=== PATIENT | male | born 1970 | race Caucasian/White ===

== ENCOUNTER 2018-10-21 13:45 | Emergency (ER) | payer MEDICAID, OTHER ==
[~2018-10-21] VITALS: Ht 172.7 cm; Wt 76.0 kg
[~2018-10-21 13:45] MED LIST: CEPH-572 PO; SULF1TAB49 PO; TRAM50TA2 PO
[2018-10-21 14:17] VITALS: BP 140/89
[2018-10-21] MEDS ORDERED: CefTRIAXone 1000mg IM Kit (w/lidocaine diluent) IM ONE (15:05)
== END 2018-10-21 15:20 | disposition home or self-care (01) ==
LOC: ER 13:45
DX: L02.415 Cutaneous abscess of right lower limb (principal); Z79.2 Long term (current) use of antibiotics; Z79.899 Other long term (current) drug therapy
CPT/HCPCS: 96372; 99283; J0696

== ENCOUNTER 2019-05-27 14:02 | Emergency (ER) | payer MEDICAID ==
[~2019-05-27] VITALS: Ht 172.7 cm; Wt 82.0 kg
[~2019-05-27 14:02] MED LIST changes: -CEPH-572 PO; -SULF1TAB49 PO
[2019-05-27 14:08] VITALS: BP 122/84
[2019-05-27] MEDS ORDERED: AMOX-580 PO (14:48)
== END 2019-05-27 15:06 | disposition home or self-care (01) ==
LOC: ER 14:03
DX: K04.7 Periapical abscess without sinus (principal)
CPT/HCPCS: 99283

== ENCOUNTER 2020-10-29 18:56 | Emergency (ER) | payer MEDICAID ==
[~2020-10-29] VITALS: Ht 172.7 cm; Wt 95.0 kg
[2020-10-29 19:14] VITALS: BP 154/97
[2020-10-29] MEDS ORDERED: ketorolac tromethamine 15mg/ml inj. IM ONE (23:30)
[2020-10-29 23:52] LABS: BASOPHILS % (AUTO) 0.4 % (0-1); EOSINOPHILS # (AUTO) 0.1 X10'3 (0-0.9); EOSINOPHILS % (AUTO) 1.4 % (0-6); HEMATOCRIT 41.6 % (42.0-52.0); HEMOGLOBIN 14.2 g/dl (14.0-17.9); LYMPHOCYTES # (AUTO) 2.4 X10'3 (1.1-4.8); LYMPHOCYTES % (AUTO) 24.4 % (21-51); MEAN CORPUSCULAR HEMOGLOBIN 30.1 PG (27.0-31.0); MEAN CORPUSCULAR HGB CONC 34.2 g/dL (33.0-36.5); MEAN CORPUSCULAR VOLUME 87.9 FL (78-98); MEAN PLATELET VOLUME 8.1 FL (7.4-10.4); MONOCYTES # (AUTO) 0.6 X10'3 (0-0.9); MONOCYTES % (AUTO) 5.8 % (2-12); NEUTROPHILS # (AUTO) 6.7 X10'3 (1.8-7.7); PLATELET COUNT 251 X10'3 (140-440); RED BLOOD COUNT 4.73 X10'6 (4.70-6.10); RED CELL DISTRIBUTION WIDTH 13.5 % (11.5-14.5); WHITE BLOOD COUNT 9.9 X10'3 (4.5-11.0)
[2020-10-30 00:02] LABS: ALANINE AMINOTRANSFERASE 35 U/L (12-78); ALBUMIN 3.7 G/DL (3.4-5.0); ALKALINE PHOSPHATASE 88 IU/L (46-116); ANION GAP 10 (8-16); ASPARTATE AMINO TRANSFERASE 16 U/L (10-37); BILIRUBIN,TOTAL 0.3 MG/DL (0.1-1.0); BLOOD UREA NITROGEN 17 MG/DL (7-18); BUN/CREATININE RATIO 18.7 (5.4-32.0); CALCIUM 8.6 MG/DL (8.5-10.1); CHLORIDE 104 MMOL/L (99-107); CREATININE 0.91 MG/DL (0.60-1.10); GLUCOSE 107 MG/DL (70-104); POTASSIUM 3.6 MMOL/L (3.5-5.1); SODIUM 140 MMOL/L (135-145); TOTAL CARBON DIOXIDE 25.9 MMOL/L (24-32); TOTAL PROTEIN 7.4 G/DL (6.4-8.2); eGFR 89 ML/MIN
[2020-10-30] MEDS ORDERED: clindamycin 150mg capsule PO ONE (00:15)
[2020-10-30] MEDS ORDERED: CLIN300C70 PO (00:23)
[2020-10-30] MEDS ORDERED: IBUP-1984 PO (00:23)
== END 2020-10-30 00:49 | disposition home or self-care (01) ==
LOC: ER 18:57
DX: K04.7 Periapical abscess without sinus (principal); M25.50 Pain in unspecified joint; Z79.2 Long term (current) use of antibiotics; Z79.899 Other long term (current) drug therapy
CPT/HCPCS: 36415; 80053; 85025; 96372; 99283; J1885

== ENCOUNTER 2021-09-14 13:42 | Emergency (ER) | payer MEDICAID ==
[~2021-09-14] VITALS: Ht 172.7 cm; Wt 88.0 kg
[2021-09-14 13:51] VITALS: BP 128/90
[2021-09-14] MEDS ORDERED: PENI250T2 PO ×2 (14:22→14:33)
[2021-09-14] MEDS ORDERED: NAPR-56 PO ×2 (14:22→14:33)
== END 2021-09-14 14:38 | disposition home or self-care (01) ==
LOC: ER 13:43
DX: K08.89 Other specified disorders of teeth and supporting structures (principal); Z79.899 Other long term (current) drug therapy
CPT/HCPCS: 99283

== ENCOUNTER 2024-01-20 16:07 | Emergency (ER) | payer MEDICAID ==
[~2024-01-20] VITALS: Ht 172.7 cm; Wt 81.8 kg
[~2024-01-20 16:07] MED LIST changes: +NAPR-56 PO; +PENI250T2 PO
[2024-01-20 16:21] VITALS: TEMP 97.8
[2024-01-20 17:49] LABS: BASOPHILS % (AUTO) 0.3 % (0-1); EOSINOPHILS # (AUTO) 0.1 X10'3 (0-0.9); EOSINOPHILS % (AUTO) 0.5 % (0-6); HEMATOCRIT 48.7 % (42.0-52.0); HEMOGLOBIN 16.8 g/dl (14.0-17.9); LYMPHOCYTES # (AUTO) 3.1 X10'3 (1.1-4.8); LYMPHOCYTES % (AUTO) 20.3 % (21-51); MEAN CORPUSCULAR HEMOGLOBIN 30.6 PG (27.0-31.0); MEAN CORPUSCULAR HGB CONC 34.6 g/dL (33.0-36.5); MEAN CORPUSCULAR VOLUME 88.6 FL (78-98); MEAN PLATELET VOLUME 9.2 FL (7.4-10.4); MONOCYTES % (AUTO) 6.5 % (2-12); NEUTROPHILS # (AUTO) 11.2 X10'3 (1.8-7.7); NEUTROPHILS % (AUTO) 72.4 % (42-75); PLATELET COUNT 260 X10'3 (140-440); RED CELL DISTRIBUTION WIDTH 14.9 % (11.5-14.5); WHITE BLOOD COUNT 15.5 X10'3 (4.5-11.0)
[2024-01-20] MEDS: metoprolol tartrate 50mg tablet PO ONE (17:50)
[2024-01-20 18:03] LABS: ALBUMIN 4.4 G/DL (3.4-5.0); ANION GAP 8 (8-16); BLOOD UREA NITROGEN 13 MG/DL (7-18); BUN/CREATININE RATIO 11.7 (10.0-20.0); CALCIUM 8.9 MG/DL (8.5-10.1); CHLORIDE 103 MMOL/L (99-107); CREATININE 1.11 MG/DL (0.60-1.10); GLUCOSE 105 MG/DL (70-104); SODIUM 141 MMOL/L (135-145); THYROID STIMULATING HORMONE 2.34 ulU/ml (0.34-4.50); TOTAL CARBON DIOXIDE 29.9 MMOL/L (24-32); eCRCL 76 ML/MIN; eGFR 70 ML/MIN
[2024-01-20] MEDS ORDERED: LOP12.5T PO (18:06)
[2024-01-20 18:09] LABS: POTASSIUM 3.7 MMOL/L (3.5-5.1)
[2024-01-20 18:30] LABS: APTT 27 SECONDS (22-32); PROTHROMBIN TIME 10.9 SECONDS (9.0-12.0)
[2024-01-20] MEDS: metoprolol tartrate 25mg tablet PO ONE (18:57)
[2024-01-20 20:06] VITALS: BP 124/89; PULSE 94; RESP 18; O2SAT 98
[2024-01-20 20:09] LABS: BILIRUBIN,URINE NEGATIVE (Neg); CLARITY,URINE CLEAR (Clear); COLOR,URINE YELLOW (Yellow); GLUCOSE, URINE NEGATIVE (Neg); KETONES,URINE NEGATIVE (Neg); LEUKOCYTE ESTERASE ,URINE NEGATIVE (Neg); NITRITES, URINE NEGATIVE (Neg); OCCULT BLOOD,URINE NEGATIVE (Neg); PROTEIN,URINE NEGATIVE (Neg); UROBILINOGEN,URINE 0.2 E.U/dL (0.2-1.0)
[2024-01-20 20:12] LABS: UA COLLECTION TYPE CLN CATCH MIDSTREAM
== END 2024-01-20 20:43 | disposition home or self-care (01) ==
LOC: ER 16:07
DX: R03.0 Elevated blood-pressure reading, without diagnosis of hypertension (principal); R00.2 Palpitations; R00.0 Tachycardia, unspecified; D72.829 Elevated white blood cell count, unspecified; Z98.890 Other specified postprocedural states; Z79.1 Long term (current) use of non-steroidal anti-inflammatories (NSAID); Z79.899 Other long term (current) drug therapy
CPT/HCPCS: 36415; 71045; 80048; 81003; 83735; 84443; 85025; 85610; 85730; 93005; 99285

== ENCOUNTER 2024-04-21 09:01 | Emergency (ER) | payer MEDICAID ==
[~2024-04-21] VITALS: Ht 172.7 cm; Wt 86.2 kg
[~2024-04-21 09:01] MED LIST changes: +LOP12.5T PO
[2024-04-21 09:10] VITALS: BP 153/95; PULSE 68; RESP 16; TEMP 98.1; O2SAT 98
== END 2024-04-21 12:05 | disposition home or self-care (01) ==
LOC: ER 09:01
DX: T81.31XA Disruption of external operation (surgical) wound, not elsewhere classified, initial encounter (principal); Z98.890 Other specified postprocedural states; Y83.8 Other surgical procedures as the cause of abnormal reaction of the patient, or of later complication, without mention of misadventure at the time of the procedure
CPT/HCPCS: 99281; 99282

== ENCOUNTER 2024-05-31 12:21 | Emergency (ER) | payer MEDICAID ==
[~2024-05-31] VITALS: Ht 172.7 cm; Wt 93.2 kg
[2024-05-31 12:30] VITALS: TEMP 97.8
[2024-05-31] MEDS ORDERED: AMOX-580 PO (13:44)
[2024-05-31 13:57] VITALS: BP 146/68; PULSE 76; RESP 18; O2SAT 98
== END 2024-05-31 14:00 | disposition home or self-care (01) ==
LOC: ER 12:22
DX: K04.7 Periapical abscess without sinus (principal); K02.9 Dental caries, unspecified; Z79.899 Other long term (current) drug therapy; Z98.890 Other specified postprocedural states
CPT/HCPCS: 99283

== ENCOUNTER 2024-06-11 22:07 | Emergency (ER) | payer MEDICAID ==
[~2024-06-11] VITALS: Ht 172.7 cm; Wt 93.2 kg
[~2024-06-11 22:07] MED LIST changes: +AMOX-580 PO
[2024-06-11 22:21] VITALS: TEMP 97.8
[2024-06-11 23:36] VITALS: BP 140/93; PULSE 87; RESP 16; O2SAT 98
== END 2024-06-11 23:42 | disposition home or self-care (01) ==
LOC: ER 22:07
DX: K04.7 Periapical abscess without sinus (principal); Z88.1 Allergy status to other antibiotic agents; Z79.899 Other long term (current) drug therapy; Z98.890 Other specified postprocedural states
CPT/HCPCS: 99282

== ENCOUNTER 2024-10-19 12:49 | Emergency (ER) | payer MEDICAID ==
[~2024-10-19] VITALS: Ht 172.7 cm; Wt 93.2 kg
[~2024-10-19 12:49] MED LIST changes: -AMOX-580 PO
[2024-10-19 12:53] VITALS: BP 144/76; PULSE 87; O2SAT 96
--- NOTE | 2024-10-19 15:17 | Physician Documentation ---
History of Present Illness ~ Chief Complaint: Back Pain Stated Complaint: PAIN ON LEFT SIDE/GROIN PAIN Time Seen by MD: 15:05 Primary Medical Doctor: JEANIE Julien HPI 63-year-old male presents to the ED with a complaint of 2-3 days of lumbar sacral pain. 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 Denies any red flag symptoms including saddle anesthesia fever numbness tingling.or incontence States that when he is able to fall asleep, but wakes up in his in extreme pain. reports that he feels better after walking around. Day of Onset: Oct 19, 2024 Medication Reconciliation Allergies: Coded Allergies: cefepime (Verified Allergy, Intermediate, SOB, CHEST PAIN, FEVER, 10/19/24) Scheduled Metoprolol Tartrate (Lopressor tablet), 1 TAB PO Q12H Naproxen (Naproxen), 1 TAB PO Q12H Penicillin V Potassium* (Penicillin VK*), 1 TAB PO Q6H Tramadol Hcl (Tramadol Hcl), 50 MG PO Q6H Past Medical History Past Medical History: No Pertinent History Past Surgical History: orthopedic surgeries Alcohol Use: Sober Drug Use: none Lives with: Spouse Lives In: Home Physical Exam Physical Exam Vital Signs: Temperature: 97.0, Heart Rate: 87, Respiratory Rate: 18, BP: 144/76, Pulse Oximetry: 96, Weight: 93.180 Oxygen Flow Rate: 0 Progress Results/Orders Results/Orders Orders - 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 (Morphine Inj.) (10/19/24 15:20) Dexamethasone Inj (Decadron 10mg/Ml Inj) (10/19/24 15:18) Medications Received in ER Medications (Trade) Dose Ordered Sig/Deo Route PRN Reason Start Time Stop Time Status Last Admin Dose Admin (Toradol inj. 30mg/ml) 30 mg ONCE ONCE IM 10/19/24 15:20 10/19/24 15:21 DC 10/19/24 15:51 30 MG (morphine inj.) 4 mg ONCE ONCE IM 10/19/24 15:20 10/19/24 15:21 DC 10/19/24 15:51 4 MG (Decadron 10mg/ ml inj) 10 mg ONCE STAT PO 10/19/24 15:18 10/19/24 15:19 DC 10/19/24 15:51 10 MG Vital Signs 10/19/24 10/19/24 10/19/24 12:53 15:51 15:51 Temp 97.0 Pulse 87 Resp 18 16 16 B/P (MAP) 144/76 Pulse Ox 96 O2 Flow Rate 0 Medical Decision Making Findings Patient presents with all the clinical indications for a lumbago or a lumbar strain. I am going to recommend that he takes anti-inflammatories corticosteroids and follows up with worker's comp considering he injured himself at work... He would likely benefit from a referral to physical therapy for further evaluation and likely a MRI to investigate bulge disc. Departure Disposition: HOME / SELF CARE / HOMELESS Impression: Primary Impression: Low back pain Additional Impression: Lumbosacral strain Condition: Stable Discharge Instructions: Acute Back Pain, Adult Referrals: NO PRIMARY CARE PROVIDER (PCP) Prescriptions Lidocaine (Lidoderm) 5 % Adh..patch 1 PATCH TOP DAILY for 30 Days, #10 PATCH 0 Refills may wear up to 12 hours Prov: AXEL NAVA NP 10/19/24 Naproxen (Naproxen) 500 Mg Tablet 1 TAB PO Q12H, #20 TAB Prov: AXEL NAVA NP 10/19/24 Cyclobenzaprine HCl (Cyclobenzaprine HCl) 10 Mg Tablet 1 TAB PO Q8H for muscle spasms for 10 Days, #30 TAB Prov: AXEL NAVA NP 10/19/24 Education Educated: Patient Signature Scribe Signature: f Attestation: Scribed for Axel Nava Np by Axel Bennett NP . 10/19/24 15:59 AXEL NAVA NP Oct 19, 2024 15:17
[2024-10-19 15:51] VITALS: RESP 16
[2024-10-19] MEDS: ketorolac trometh 30MG/ML vial 30 MG/ML VIAL IM ONE (15:51)
[2024-10-19] MEDS: dexamethasone sod phosphate 10mg/ml inj PO STA (15:51)
[2024-10-19] MEDS: morphine 4 MG/ML inj SYRINge IM ONE (15:51)
[2024-10-19] MEDS ORDERED: NAPR-56 PO (15:59)
[2024-10-19] MEDS ORDERED: CYCL-394 PO (15:59)
[2024-10-19] MEDS ORDERED: LIDO-52 TOP (15:59)
--- NOTE | 2024-10-19 16:06 | RADIOLOGY REPORT ---
INDICATION: pain TECHNIQUE: 4 views of the lumbar spine were obtained. COMPARISON: None FINDINGS: There are no acute fractures or subluxations. Degenerative disc space narrowing at L5-S1. Mild multilevel degenerative osteophyte formation. IMPRESSION: No acute fracture or subluxation.
[2024-10-19 16:19] VITALS: TEMP 97
== END 2024-10-19 16:20 | disposition home or self-care (01) ==
LOC: ER 12:50
DX: S39.012A Strain of muscle, fascia and tendon of lower back, initial encounter (principal); Z88.1 Allergy status to other antibiotic agents; Z79.899 Other long term (current) drug therapy; W18.39XA Other fall on same level, initial encounter; Y93.01 Activity, walking, marching and hiking; Y92.89 Other specified places as the place of occurrence of the external cause; Y99.8 Other external cause status
CPT/HCPCS: 72100; 96372; 99284; J1100; J1885; J2270